=== PATIENT | female | born 1955 | race Caucasian/White ===

== ENCOUNTER → 2016-11-13 | Outpatient (CLI) | payer MEDICARE, MEDICAID ==
[~2016-11-13] MED LIST: ACET500T67 PO; ASPI-450 PO; CITA-108 PO; DOCU-168 PO; GUAI200T5 PO; HYDR-4010 PO; HYDR-4074 PO; LACT1CAP67 PO; LORA10TA7 PO; POLY17PO6 PO; SODI75SP NS; TRAZ-58 PO
--- NOTE | 2016-11-15 10:12 | DI ---
Indication: ITS.REASON: M25.551 RT HIP PAIN PROCEDURE: MRI LUMBAR SPINE W/O CONTRAST: Encounter: Initial Comparison: None Technique: Multiplanar multisequence MR imaging of the lumbar spine was performed without contrast. Findings: Alignment of the lumbar spine is within normal limits. No acute fracture identified. Vertebral body heights are maintained. Conus medullaris terminates normally at L1. Paraspinal soft tissues are unremarkable. Mild motion artifact. Segmental analysis: L1-L2: Normal L2-L3: Normal L3-L4: Right foraminal disk protrusion causing mild right neural foraminal stenosis. Small annular tear noted. No central canal stenosis. Mild degenerative facet disease contributing to minimal left foraminal narrowing. L4-L5: No significant disk herniation, central canal or neural foraminal stenosis. L5-S1: Small annular tear with a small right central disk protrusion narrowing the right lateral recess. No central canal stenosis. Minimal right foraminal narrowing. No significant left foraminal stenosis. Impression: Mild degenerative disk disease as above with areas of right foraminal narrowing. .
== END ==
LOC: IMA 13:56
PROVIDERS: ATTEND Orthopaedic Surgery
DX: M51.36 Other intervertebral disc degeneration, lumbar region (principal); M51.37 Other intervertebral disc degeneration, lumbosacral region; M25.551 Pain in right hip

== ENCOUNTER → 2016-11-28 | Outpatient (CLI) | payer MEDICARE, MEDICAID | LOC: WC.BC 12:42 | DX: Z12.31 Encounter for screening mammogram for malignant neoplasm of breast (principal) | CPT/HCPCS: 77063; G0202 ==